=== PATIENT | male | born 1965 | race Caucasian/White ===

== ENCOUNTER → 2020-08-12 14:20 | Outpatient (BNVA) | payer OTHER, SELFPAY | PROVIDERS: PCP Internal Medicine; Visit Provider Surgery | DX: Z76.89 Persons encountering health services in other specified circumstances (principal) ==

== ENCOUNTER 2020-08-25 07:17 | Day surgery (SDC) | payer OTHER, SELFPAY ==
[2020-08-20 12:14] VITALS: BMI 29.5
--- NOTE | 2020-08-20 12:28 | P.CONAN_ITS ---
Documented by User: Yolie Lebron 08/20/20 12:29 HPI - Anesthesia Eval Consult details Narrative: 55yo M Hernia Repair Umbilical [facility] Past Medical History Medical History Hypercholesterolemia Hypertension Surgical History Surgical History History of appendectomy Social History Social History Alcohol intake: current Smoking Status: Never smoker Second Hand Smoke Exposure: No Use of substances other than those prescribed or required for medical reasons: No Advance Directives: No Advance Directives Information Provided: No Advance Directives on File: No Meds Allergies Allergy/AdvReac Type Severity Reaction Status Date / Time Penicillins [PENICILLINS] Allergy Unknown UNKNOWN Unverified 06/12/20 14:44 Home Medications Medication Instructions Recorded Confirmed Type lisinopril 10 mg tablet 10 mg PO DAILY 08/12/20 History simvastatin 10 mg tablet 10 mg PO DAILY 08/12/20 History Exam Exam Date and Time: August 20, 2020 1228 Height,Weight and Vital Signs: Height 5 ft 6 in Weight 83 kg Assessment and Plan Assessment Anesthesia Assessment: Chart Reviewed Documented by User: Michelle Luis 08/25/20 09:12 [facility] Past Medical History Medical History Hypercholesterolemia Hypertension Surgical History Surgical History History of appendectomy Social History Social History Alcohol intake: current Smoking Status: Never smoker Second Hand Smoke Exposure: No Use of substances other than those prescribed or required for medical reasons: No Advance Directives: No Advance Directives Information Provided: No Advance Directives on File: No Meds Allergies Allergy/AdvReac Type Severity Reaction Status Date / Time Penicillins [PENICILLINS] Allergy Unknown UNKNOWN Unverified 06/12/20 14:44 Home Medications Medication Instructions Recorded Confirmed Type lisinopril 10 mg tablet 10 mg PO DAILY 08/12/20 History simvastatin 10 mg tablet 10 mg PO DAILY 08/12/20 History
[2020-08-25] VITALS (7 sets, daily range): BP systolic 110–154; BP diastolic 61–79; PULSE 56–81; RESP 16–18; TEMP 36.4–36.6; O2SAT 94–99
[2020-08-25] MEDS: vancomycin HCL 1,000 MG in 0.9 % Sodium Chloride 250 ML 270 MG IV (09:39)
[2020-08-25] MEDS: Lactated Ringers 1,000 ML 100 ML IVCONT (09:39)
--- NOTE | 2020-08-25 09:44 | MHC.SHP ---
Pre-Procedural Eval Section A The patient is an INPATIENT: No Changes since office visit: Yes Patient answered all questions; No Cold of Flu in the past 2 weeks, No New Medical Problems and No Changes in Medication The History & Physical has been completed within 30 days and I have reviewed it.: Yes Section B Chief Complaint: Umbilical Hernia Allergies: Allergies Allergy/AdvReac Type Severity Reaction Status Date / Time Penicillins [PENICILLINS] Allergy Unknown UNKNOWN Unverified 06/12/20 14:44 Plan Diagnosis/Plan: Unchanged Patient has been examined and remains a candidate for the planned procedure
--- NOTE | 2020-08-25 10:43 | P.BOP_ITS ---
Brief Operative Note Date of Service: 08/25/20 Pre-op diagnosis: Umbilical hernia Post-op diagnosis: same Procedure: repair of umbilical hernia with mesh Implants: 4.[address] Surgeon: Stefano Arroyo MD Anesthesia: [facility] [employer] Professor: Loly Mckeon Estimated blood loss (mL): 5 Pathology: none sent Condition: stable Disposition: PACU
--- NOTE | 2020-08-25 10:44 | P.OP_ITS ---
Operative Note Operative Note Date of Service: 08/25/20 Narrative: preoperative diagnosis: Umbilical hernia Postoperative diagnosis: Same Procedure: Repair of umbilical hernia with mesh Surgeon: Stefano Arroyo MD Law Enforcement Officer: JUANITO Chaudhari Anesthesia: General [facility] Indications for procedure this is a 55-year-old male patient presenting with a lump in the umbilicus which is increasing in size and causing discomfort. On examination the patient has a reducible umbilical hernia with slight tenderness to palpation. Operative findings: Patient was found to have a 1 cm defect with incarcerated preperitoneal fat this was repaired using a 4.[address] mesh Specimen: None Estimated blood loss: 5 mL Complications: None Procedure details: Patient was brought to the OR placed in a supine position. After administering general anesthesia the patient's abdomen was prepped with ChloraPrep and draped in a sterile fashion. A surgical time-out was called the consent confirmed. Patient received preoperative antibiotics and Venodyne boots were in place. Local anesthesia consisting of 0.75% Sensorcaine was infiltrated around the umbilicus. A curvilinear incision was made above the umbilicus in a transverse fashion. This was carried out through subcutaneous tissue and up to the hernia sac. The hernia sac was then dissected down to the fascial edge. The hernia sac was then reduced into the abdominal cavity. A preperitoneal space was then created using a combination of blunt and sharp dissection. Hemostasis was assured using electrocautery. A 4.3 cm round Ventralex mesh was then obtained. This was placed in the preperitoneal space and secured to the fascia using interrupted of 1 Tycron sutures. Fascia was closed over the mesh. Wounds were then irrigated with saline solution. Additional local was infiltrated in subcutaneous tissue. Umbilical skin was then reattached to the fascia using interrupted 3-0 Polysorb sutures. dermis was reapproximated using interrupted 3-0 Polysorb sutures. Skin was then closed using a running subcuticular 4 0 Polysorb suture. Steri- Strips 2 x 2 gauze and Tegaderm were then applied. The patient tolerated the procedure well. Sponge, instrument, needle counts reported as correct. The patient was transferred to PACU in stable condition.
[2020-08-25] MEDS: Acetaminophen 325 MG TABLET 650 MG PO (11:11)
[2020-08-25] MEDS: oxyCODONE HCl Immed Release 5 MG TABLET 10 MG PO (11:12)
--- NOTE | 2020-08-25 11:47 | HO.POSTANES ---
Post Anesthesia Evaluation Post Anesthesia Evaluation Vital Signs: Vital Signs Temp Pulse Resp BP Pulse Ox 08/25/20 11:32 97.5 F 62 18 154/62 H 98 08/25/20 11:17 65 16 139/69 97 08/25/20 11:02 66 16 131/75 96 08/25/20 10:57 81 16 110/61 94 08/25/20 10:53 72 16 112/61 94 08/25/20 10:48 97.5 F 70 16 114/61 96 08/25/20 09:13 97.8 F 56 18 145/79 H 99 Anesthesia: General Mental Status: Awake Pain Control: Satisfactory Nausea/Vomiting: None Hydration: Adequate Anesthesia-Related Issues: No Anes. Related Issues
== END 2020-08-25 23:59 | disposition home or self-care (01) ==
PROVIDERS: PCP Internal Medicine; Visit Provider Surgery
PROC: (CPT 49585; principal; 2020-08-25 09:30)
DX: K42.9 Umbilical hernia without obstruction or gangrene (principal); I10 Essential (primary) hypertension; E78.00 Pure hypercholesterolemia, unspecified; Z79.899 Other long term (current) drug therapy
CPT/HCPCS: 49585; C1781; J1885; J2250; J2405; J3010; J3370

== ENCOUNTER → 2020-09-02 09:48 | Outpatient (BNVA) | payer OTHER, SELFPAY | PROVIDERS: PCP Internal Medicine; Visit Provider Surgery | DX: Z76.89 Persons encountering health services in other specified circumstances (principal) ==

== ENCOUNTER → 2020-09-24 09:29 | Outpatient (BNVA) | payer OTHER, SELFPAY | PROVIDERS: PCP Internal Medicine; Visit Provider Surgery | DX: Z76.89 Persons encountering health services in other specified circumstances (principal) ==

== ENCOUNTER 2023-04-10 13:34 | Emergency (ER) | payer OTHER, SELFPAY ==
--- NOTE | ~2023-04-10 | CT_ITS ---
EXAMINATION: CT CHEST WITHOUT CONTRAST CLINICAL INFORMATION: chest wall pain, ?rib fxs b/l concern for addtl'. COMPARISON: No pertinent prior studies are available for comparison. TECHNIQUE: Multidetector volumetric imaging was performed from the thoracic inlet through the lung bases without contrast. Sagittal and coronal reformatted images were obtained on the technologist workstation. Soft tissue and lung algorithms evaluated. Thick slab MIP images were performed to increase nodule conspicuity. This CT examination was performed using dose optimization techniques as appropriate, variously including the following: *Automated exposure control *Adjustment of mA and/or kV according to patient size (this includes techniques or standardized protocols for targeted exams where dose is matched to indication/reason for exam; i.e. extremities or head) *Use of iterative reconstruction technique DLP: 368 mGy-cm. FINDINGS: LUNG: The lungs are clear without focal opacity or nodule. MEDIASTINUM: The mediastinum is normal. The central vascular structures are unremarkable. No hilar or mediastinal lymphadenopathy. CORONARY ARTERY CALCIFICATION: Present PERICARDIUM/PLEURA: No significant effusion. No pleural mass or thickening. THYROID/VISUALIZED LOWER NECK: Unremarkable. CHEST WALL/AXILLA: No axillary adenopathy. VISUALIZED UPPER ABDOMEN: Gallstones within the dependent aspect of the contracted gallbladder BONES: Nondisplaced fracture of the anterior right fifth rib CT/CT chest wo IV con IMPRESSION: Nondisplaced fracture of the anterior right fifth rib. No pneumothorax or pleural effusion.
--- NOTE | ~2023-04-10 | XR_ITS ---
EXAMINATION: XR ribs BI min 4V w CXR1V CLINICAL INFORMATION: Reason for Exam s/p fall Tuesday with rib cage pain/bruising noted COMPARISON: Chest radiograph [id number] TECHNIQUE: 3 views of the Bilateral ribs. 1 view of the chest. FINDINGS: Mildly displaced right anterior fifth rib fracture. Possible subtle posterior left 11th rib fracture, recommend correlation with point tenderness. Clear lungs. No pneumothorax. No pleural effusion. Unchanged cardiomediastinal silhouette. XR/XR ribs BI min 4V w CXR1V IMPRESSION: 1. Mildly displaced right anterior fifth rib fracture. Possible subtle posterior left 11th rib fracture, recommend correlation with point tenderness. 2. Clear lungs. No pneumothorax.
[2023-04-10 13:49] VITALS: BP 173/102; PULSE 90; RESP 20; TEMP 35.8; O2SAT 97; BMI 27.8
--- NOTE | 2023-04-10 13:51 | ECG_ITS ---
Test Reason : FALL Blood Pressure : / mmHG Vent. Rate : 093 BPM Atrial Rate : 093 BPM P-R Int : 118 ms QRS Dur : 090 ms QT Int : 378 ms P-R-T Axes : 057 020 -25 degrees QTc Int : 469 ms Normal sinus rhythm with sinus arrhythmia Nonspecific T wave abnormality Abnormal ECG When compared with ECG of 18-JAN-2012 07:10, No significant change was found Referred By: Pat Norris Electronically Signed By:Lenny Marroquin
--- NOTE | 2023-04-10 13:51 | ED.FALL ---
HPI - Fall General Chief Complaint: Fall Stated Complaint: bruised ribs Time Seen by Provider: 04/10/23 16:06 Source: patient, RN notes reviewed and old records reviewed Mode of arrival: ambulatory Limitations: no limitations History of Present Illness HPI Narrative: 57-year-old male presents for evaluation chest wall pain Patient reports that he works at [employer]. He was carrying a tray when he tripped over ?a grease trap. Patient reports that he landed with his chest wall striking stainless steel grease trap Patient reports that it knocked the wind out of him This happened 2 days ago. He continues to have pain worse with taking a deep breath or coughing Denies any fevers, chills Denies any loss of conscious or head strike No other complaints or concerns Related Data Home Medications Medication Instructions Recorded Confirmed lisinopril 10 mg tablet 10 mg PO DAILY blood pressure 08/12/20 09/24/20 simvastatin 10 mg tablet 10 mg PO DAILY 08/12/20 09/24/20 Previous Rx's Medication Instructions Recorded benzonatate 200 mg capsule 200 mg PO TID PRN cough #20 caps 04/10/23 oxycodone 5 mg tablet 5 mg PO Q6H PRN severe pain (scale 04/10/23 score 7-10) #12 tabs Allergies Allergy/AdvReac Type Severity Reaction Status Date / Time Penicillins [PENICILLINS] Allergy Unknown UNKNOWN Verified 09/24/20 09:48 Review of Systems Constitutional: Constitutional: Reports as per HPI, Denies chills, Denies fatigue, Denies fever(s) and Denies headache(s) ENT: Denies headache(s) Cardiovascular: Cardiovascular: Reports chest pain and Denies dyspnea Respiratory: Respiratory: Reports cough and Denies dyspnea Gastrointestinal: Gastrointestinal: Denies abdominal pain, Denies constipation and Denies vomiting Genitourinary: Genitourinary: Denies difficulty urinating and Denies dysuria Neurologic: Denies headache(s) and Denies focal weakness Endocrine: Endocrine: Denies fatigue PMFSH Past Medical History Medical History Hypercholesterolemia Hypertension Surgical History H/O umbilical hernia repair History of appendectomy Social History Social History Alcohol intake: current Alcohol intake frequency: a few times a week Smoked in Last 30 Days: No Second Hand Smoke Exposure: No Use of substances other than those prescribed or required for medical reasons: No Advance Directives: No Advance Directives Information Provided: Yes Physical Exam Vital Signs: Vital Signs: Last Vital Signs Temp 96.4 F L 04/10/23 13:49 Pulse 89 04/10/23 15:27 Resp 18 04/10/23 15:27 BP 165/87 H 04/10/23 15:27 Pulse Ox 99 04/10/23 15:27 O2 Del Method Room Air 04/10/23 15:27 BMI result Body Mass Index 27.8 Const: General: healthy appearing, comfortable, no acute distress, alert and awake Nutritional Appearance: well nourished Orientation/consciousness: patient oriented x3 HEENT: Head: Yes normocephalic and Yes atraumatic Eyes: Eyelids: Yes eyelids normal Conjunctivae: conjunctivae normal Sclerae: sclerae normal Corneas: corneas normal Pupils: Equal, round and reactive pupils present EOM: EOMs intact bilaterally Neck: Neck: Yes full ROM Chest: Other: Contusion to the left anterior chest wall just below the nipple Chest palpation & inspection: abnormal inspection of the chest, no crepitus and tenderness (To the right anterior chest wall) Resp: Effort & Inspection: normal respiratory effort, able to speak in complete sentences, no audible wheezes and not labored Auscultation: clear to auscultation bilaterally GI: Inspection: No distended Palpation (GI): Soft to palpation, not firm, nontender, no guarding and not rigid Back/Spine/Pelvis: Other: Patient has minimal tenderness to the left posterior thoracic region overlying the lower ribs Skin: General skin exam: no rashes or lesions noted and elasticity normal Neuro: General: patient oriented x3 Cranial nerves: Yes Equal, round and reactive pupils present and Yes Bilaterally intact EOM present Cognition (Neuro): normal cognition Course Course Course Narrative: PEDRO- 13:55pm - 57yoM with a PMHx of HTN on Lisinopril presenting to the ER with complaints of anterior chest wall rib cage pain worse when he coughs or takes a deep breath after he had a mechanical fall at work on Tuesday. He reports that someone set a grease trapped in the middle of the floor and he did not see it and he unfortunately slipped and fell directly on the grease trap that is shaped like a square and has some mild pain. Although today woke up with worsening pain. He reports when he fell he did not have any symptoms prior to the fall. He did not hit his head or lose consciousness. He denies being on any blood thinners. He denies history of AK or CVA. He did not take his blood pressure medication today he decided to just come here to be evaluated reports this may be why his blood pressure is elevated. He did develop a dry cough that started today. The chest pain worsened today to his entire anterior chest wall. He denies any other symptoms related to this. On exam patient does have anterior chest wall rib cage tenderness. Some bruising noted to the left chest wall/near the nipple. Not consistent with flail chest. No crepitus is noted. No other signs of trauma. Lungs are clear to auscultation. CV RRR. Plan: Labs, EKG and rib/chest x-ray ordered at this time. Patient will be sent back to the waiting room to be evaluated in the ED patient is noted to be hypertensive although again he did not take his hypertensive medications. Medical Decision Making Medical Decision Making MDM Narrative: [age] old male presents for evaluation of chest wall pain after mechanical fall at work 2 days ago. His x-ray suggests a right 5th anterior mildly displaced rib fracture and a possible left posterior rib fracture of the 11th rib. He does have mild point tenderness over this region. A CT scan was ordered of the chest prior to my evaluation the patient, this result is pending. His labs are without any significant abnormalities Differential Diagnosis Differential Diagnoses: The differential diagnosis associated with the presentation includes Chest wall contusion Rib fracture Flail chest Pneumothorax Hemothorax Lab Data 04/10/23 14:20 04/10/23 14:20 Labs: Lab Results 04/10/23 04/10/23 04/10/23 Range/Units 14:20 14:20 14:20 WBC 3.7 L (4.8-10.8) X10*3/uL RBC 4.38 L (4.60-5.80) X10*6/uL Hgb 15.1 (14.0-18.0) g/dl Hct 42.2 (42.0-52.0) % MCV 96.3 (80.0-98.0) fL MCH 34.5 H (27.0-33.0) pg MCHC 35.8 (31.0-36.0) g/dl RDW 13.1 (11.0-16.0) % Plt Count 192 (160-400) X10*3/uL MPV 9.5 (9.4-12.4) fL Immature Gran % (Auto) 0.3 (0.0-0.4) % Neut % (Auto) 69.0 (45-73) % Lymph % (Auto) 21.3 (20-40) % [place] % (Auto) 7.8 (2-11) % Eos % (Auto) 1.1 (0-4) % Baso % (Auto) 0.5 (0-2) % Lymph # (Auto) 0.8 L (1.2-4.9) X10*3/uL [place] # (Auto) 0.3 (0.1-1.2) X10*3/uL Eos # (Auto) 0.0 (0.0-0.4) X10*3/uL Baso # (Auto) 0.0 (0.0-0.2) X10*3/uL Abs Immat Gran (auto) 0.01 (0.00-0.03) X10*3/uL Absolute Neuts (auto) 2.6 (2.0-8.3) x10*3/uL Absolute Nucleated RBC 0.000 (0.0-0.012) X10*3/uL Nucleated RBC % (auto) 0.0 (0.0-0.2) /100WBC PT 10.1 (10.0-13.1) SEC INR 0.9 (0.9-1.1) Sodium 144 (135-145) mmol/L Potassium 3.8 (3.3-5.1) mmol/L Chloride 106 (96-108) mmol/L Carbon Dioxide 26 (22-29) mmol/L Anion Gap 16 (12-20) BUN 9 (9-16) mg/dL Creatinine 1.30 (0.5-1.4) mg/dL Estim Creat Clear Calc 60.1 Estimated GFR 57 Random Glucose 98 (60-115) mg/dL Calcium 9.8 (8.4-10.2) mg/dL Magnesium 2.1 (1.6-2.6) mg/dL Total Bilirubin 0.7 (0.0-1.0) mg/dL AST 33 (5-37) U/L ALT 25 (0-40) U/L Alkaline Phosphatase 43 (39-117) U/L Total Creatine Kinase 189 H (38-174) U/L Troponin I High Sens (<3.5-35.0) ng/L Total Protein 7.4 (6.5-8.0) g/dL Albumin 4.4 (3.5-5.0) g/dL 04/10/23 Range/Units 14:20 WBC (4.8-10.8) X10*3/uL RBC (4.60-5.80) X10*6/uL Hgb (14.0-18.0) g/dl Hct (42.0-52.0) % MCV (80.0-98.0) fL MCH (27.0-33.0) pg MCHC (31.0-36.0) g/dl RDW (11.0-16.0) % Plt Count (160-400) X10*3/uL MPV (9.4-12.4) fL Immature Gran % (Auto) (0.0-0.4) % Neut % (Auto) (45-73) % Lymph % (Auto) (20-40) % [place] % (Auto) (2-11) % Eos % (Auto) (0-4) % Baso % (Auto) (0-2) % Lymph # (Auto) (1.2-4.9) X10*3/uL [place] # (Auto) (0.1-1.2) X10*3/uL Eos # (Auto) (0.0-0.4) X10*3/uL Baso # (Auto) (0.0-0.2) X10*3/uL Abs Immat Gran (auto) (0.00-0.03) X10*3/uL Absolute Neuts (auto) (2.0-8.3) x10*3/uL Absolute Nucleated RBC (0.0-0.012) X10*3/uL Nucleated RBC % (auto) (0.0-0.2) /100WBC PT (10.0-13.1) SEC INR (0.9-1.1) Sodium (135-145) mmol/L Potassium (3.3-5.1) mmol/L Chloride (96-108) mmol/L Carbon Dioxide (22-29) mmol/L Anion Gap (12-20) BUN (9-16) mg/dL Creatinine (0.5-1.4) mg/dL Estim Creat Clear Calc Estimated GFR Random Glucose (60-115) mg/dL Calcium (8.4-10.2) mg/dL Magnesium (1.6-2.6) mg/dL Total Bilirubin (0.0-1.0) mg/dL AST (5-37) U/L ALT (0-40) U/L Alkaline Phosphatase (39-117) U/L Total Creatine Kinase (38-174) U/L Troponin I High Sens < 2.7 (<3.5-35.0) ng/L Total Protein (6.5-8.0) g/dL Albumin (3.5-5.0) g/dL Independent Interpretation I performed an independent interpretation of an: Plain X-Ray (Right 5th anterior rib fracture no pneumothorax) Radiology Impression Discussion of test interpretation with radiology: I have reviewed the radiologist's reading. (Right 5th rib fracture, questionable 11th left posterior rib fracture) Radiologist Impression: CT scan confirms right 5th rib fracture but no other acute findings Discharge Plan Discharge Clinical Impression: Fracture of rib Patient Disposition: Home, Self-Care Instructions: Rib Fracture (ED) Additional Instructions: Your CT scan only showed the 1 rib fracture on the right 5th rib. Use ibuprofen and or Tylenol for your pain You may use oxycodone for more severe, breakthrough pain This may make you sleepy, did not drink alcohol or drive after taking it You may also use Tessalon Perles as needed for coughing Using incentive spirometry once every hour to prevent pneumonia Follow-up with your primary doctor Prescriptions: New oxycodone 5 mg tablet 5 mg PO Q6H PRN (Reason: severe pain (scale score 7-10)) Qty: 12 0RF Rx Instructions: Partial Fill upon patient request. benzonatate 200 mg capsule 200 mg PO TID PRN (Reason: cough) Qty: 20 0RF No Action lisinopril 10 mg tablet 10 mg PO DAILY simvastatin 10 mg tablet 10 mg PO DAILY
[2023-04-10 14:26] LABS: MANUAL DIFF FLAG NO
[2023-04-10 14:28] LABS: Basophils Percent Auto 0.5 % (0-2); Eosinophils Percent Auto 1.1 % (0-4); Hematocrit 42.2 % (42.0-52.0); Hemoglobin 15.1 g/dl (14.0-18.0); Imm Gran Abs Auto 0.01 X10*3/uL (0.00-0.03); Imm Gran Pct Auto 0.3 % (0.0-0.4); Lymphocytes Absolute Auto 0.8 X10*3/uL (1.2-4.9); Lymphocytes Percent Auto 21.3 % (20-40); Mean Corpuscular HGB Conc 35.8 g/dl (31.0-36.0); Mean Corpuscular Hemoglobin 34.5 pg (27.0-33.0); Mean Corpuscular Volume 96.3 fL (80.0-98.0); Mean Platelet Volume 9.5 fL (9.4-12.4); Monocytes Absolute Auto 0.3 X10*3/uL (0.1-1.2); Monocytes Percent Auto 7.8 % (2-11); Neutrophils Absolute Auto 2.6 x10*3/uL (2.0-8.3); Platelet Count 192 X10*3/uL (160-400); Red Blood Count 4.38 X10*6/uL (4.60-5.80); Red Cell Distribution Width 13.1 % (11.0-16.0); White Blood Count 3.7 X10*3/uL (4.8-10.8)
[2023-04-10 14:44] LABS: Alanine Aminotransferase 25 U/L (0-40); Albumin Level 4.4 g/dL (3.5-5.0); Alkaline Phosphatase 43 U/L (39-117); Anion Gap 16 (12-20); Aspartate Amino Transferase 33 U/L (5-37); Bilirubin Total 0.7 mg/dL (0.0-1.0); Blood Urea Nitrogen 9 mg/dL (9-16); Calcium 9.8 mg/dL (8.4-10.2); Carbon Dioxide 26 mmol/L (22-29); Chloride 106 mmol/L (96-108); Creatinine Clr Calc Pharmacy 60.1; Estimated Glomerular Filt Rate 57; Glucose Random 98 mg/dL (60-115); Magnesium 2.1 mg/dL (1.6-2.6); Potassium 3.8 mmol/L (3.3-5.1); Sodium 144 mmol/L (135-145); Total Protein 7.4 g/dL (6.5-8.0)
[2023-04-10 14:45] LABS: INTERNATIONAL NORM RATIO 0.9 (0.9-1.1); Prothrombin Time 10.1 SEC (10.0-13.1)
[2023-04-10 14:51] LABS: Troponin-I High Sensitivity < 2.7 ng/L (<3.5-35.0)
[2023-04-10 15:27] VITALS: BP 165/87; PULSE 89; RESP 18; O2SAT 99
--- NOTE | 2023-04-10 15:42 | PC.NURSE ---
pt a&ox3. skin warm pink and dry. respirations even and unlabored, lung sounds clear bilaterally. pt reports tripping over a grease trap at work and hitting his chest. pt has bruising under his left breast and tenderness under both breasts. pt has small bruise above the left knee. pt reports 8/10 pain with a 10/10 when coughing. pt shown how to splint cough with a blanket.
--- NOTE | 2023-04-10 16:30 | PC.NURSE ---
pt instructed on use of incentive spirometry, this RN watched the pt demonstrate 3x.
== END 2023-04-10 18:00 | disposition home or self-care (01) ==
PROVIDERS: Physician Assistant Medical; Emergency Provider Emergency Medicine; PCP Internal Medicine
DX: S22.31XA Fracture of one rib, right side, initial encounter for closed fracture (principal); S27.9XXA Injury of unspecified intrathoracic organ, initial encounter; R07.89 Other chest pain; E78.00 Pure hypercholesterolemia, unspecified; I10 Essential (primary) hypertension; R07.1 Chest pain on breathing; W18.09XA Striking against other object with subsequent fall, initial encounter; Y93.89 Activity, other specified; Y92.89 Other specified places as the place of occurrence of the external cause; Y99.8 Other external cause status; Z79.899 Other long term (current) drug therapy
CPT/HCPCS: 36415; 71111; 71250; 80053; 82550; 83735; 84484; 85025; 85610; 93005; 94010; 99284

== ENCOUNTER → 2023-04-10 13:51 | Outpatient (BNV) | payer OTHER, SELFPAY | PROVIDERS: Emergency Provider Emergency Medicine; PCP Internal Medicine; Visit Provider Internal Medicine Cardiovascular Disease | DX: I49.9 Cardiac arrhythmia, unspecified (principal) | CPT/HCPCS: 93010 ==

== ENCOUNTER 2024-06-29 11:24 | Emergency (ER) | payer OTHER, SELFPAY ==
--- NOTE | ~2024-06-29 | XR_ITS ---
EXAMINATION: XR FOOT, LEFT CLINICAL INFORMATION: Pain along plantar foot. No injury. COMPARISON: None available. TECHNIQUE: AP, lateral, and oblique views of the left foot. FINDINGS: The bones and soft tissues appear unremarkable. No fracture identified. Alignment is anatomic. Joint spaces appear maintained. XR/XR foot LT min 3V IMPRESSION: Normal plain film examination of the left foot. Electronically signed by: Ankush Nagy MD 06/29/2024 01:54 PM EDT
[2024-06-29 11:57] VITALS: BP 127/92; PULSE 80; RESP 18; TEMP 36.4; O2SAT 98; BMI 25.5
--- NOTE | 2024-06-29 11:59 | ED.LOWEXIN ---
HPI - Extremity Injury (Lower) General Chief Complaint: Extremity Problem Stated Complaint: left foot pain-heard a pop in foot t-1 Time Seen by Provider: 06/29/24 13:51 Source: patient Mode of arrival: ambulatory Limitations: physical limitation History of Present Illness HPI Narrative: 59-year-old male presents to the emergency department with complaints of a 2 day history of left posterior foot pain. He reports he has been having pain starting at the arch of the foot radiating into the heel in the ankle starting on Tuesday. He reports he went to work yesterday, worked until 230 and went home to rest. He reports that he felt a ?pop? in the foot while he was sleeping. He states when he stepped out of the bed that he had immediate pain has been having pain with ambulation as well as swelling to the foot. He states he has a history of gout and reports that he drinks beer nightly but has not had any increase of alcohol or other gout triggers. He denies any erythema, ecchymosis, fever, chills. Pertinent positives and negatives discussed HPI Related Data Home Medications ?Medication ?Instructions ?Recorded ?Confirmed lisinopril 10 mg tablet 10 mg PO DAILY blood pressure 08/12/20 09/24/20 simvastatin 10 mg tablet 10 mg PO DAILY 08/12/20 09/24/20 Previous Rx's ?Medication ?Instructions ?Recorded benzonatate 200 mg capsule 200 mg PO TID PRN cough #20 caps 04/10/23 oxycodone 5 mg tablet 5 mg PO Q6H PRN severe pain (scale 04/10/23 score 7-10) #12 tabs indomethacin 25 mg capsule 25 mg PO TID #20 caps 06/29/24 Allergies Allergy/AdvReac Type Severity Reaction Status Date / Time Penicillins [PENICILLINS] Allergy Unknown UNKNOWN Verified 06/29/24 11:58 Review of Systems Review of Systems: Yes all other systems are reviewed and are negative PMFSH Past Medical History Medical History Hypercholesterolemia Hypertension Surgical History H/O umbilical hernia repair History of appendectomy Social History Social History Alcohol intake: current Alcohol intake frequency: a few times a week Second Hand Smoke Exposure: No Advance Directives: No Advance Directives Information Provided: No Physical Exam Vital Signs: Vital Signs: Last Vital Signs Temp 97.6 F 06/29/24 11:57 Pulse 80 06/29/24 11:57 Resp 18 06/29/24 11:57 BP 127/92 H 06/29/24 11:57 Pulse Ox 98 06/29/24 11:57 O2 Del Method Room Air 06/29/24 11:57 BMI result Body Mass Index 25.5 Nursing notes and vital signs reviewed. GENERAL APPEARANCE: A&0 x 4, generally well appearing, no acute distress HENMT: Normal to inspection, atraumatic, face symmetrical. Normal external ears, nose, and oropharynx clear. EYE: PERRLA, EOM intact, structures appear normal NECK: Supple without stiffness or restricted ROM. HEART: Normal rate and regular rhythm, normal S1/S2, no M/R/G LUNGS: LS CTA, moving air well. Able to speak in complete sentences. No crackles, wheezes, or rhonchi auscultated BACK: No CVAT, no obvious deformity EXTREMITIES: Normal capillary refill. NEUROLOGICAL: Alert and oriented, moving all 4 extremities with equal strength. CN not formally tested but appearing grossly intact. Observed to ambulate with normal gait. Cognition normal SKIN: Warm and dry without any lesions, rash, or visible sores Extrem: Left lower extremity: foot Details: edema Ankle/foot/toe images: 1. Tenderness Course Course Course Narrative: This is a Rapid Medical Examination (RME) performed by Wilbert Marshall PA-C in triage. Full HPI, ROS, assessment and treatment plan per primary provider in the Main ED. 59 yo male here for eval of left foot pain after stretching and feeling a pop while sleeping. report pain on taking first steps this morning. painful to ambulate, had to call off work today. + ttp along plantar fascia of left food. FROM intact to ankle/ toes. 2+ PT/DP pulses. Plan: xrs Medical Decision Making Medical Decision Making MDM Narrative: Old records reviewed for previous imaging, lab studies, ECGs, and notes. Patient was assessed the emergency department with no acute distress or toxicity noted. X-ray completed. I have independently interpreted this x-ray was negative for acute findings. Patient's symptoms appear consistent with a strain of sprain of the foot vs plantar fasciitis. Low suspicion for gout, however; and message sent to patient pharmacy for further management of pain. Patient requested crutches as he feels as if he can not comfortably ambulate. Patient was trialed using crutches and there was concern for stability. A walker was used and patient was noted to ambulate with greater safety using a walker Patient is safe for discharge at this time with plan for [id number] Tylenol and/or NSAID such as ibuprofen or naproxen for fever/discomfort with dosing as per packaging. HPI, PE, diagnostics, and plan discussed with patient and family with no unanswered questions at this time. Strict return precautions given to return to the emergency department with new, worsening, or concerning emergent symptoms. Recommended to follow-up with there primary care provider in 24-48 hours for further treatment and management. Differential Diagnosis Differential Diagnoses: The differential diagnosis associated with the presentation includes But not limited to Fracture, dislocation, strain, sprain, contusion, dependent edema, gout, plantar fasciitis, tendon or ligament injury, sepsis, malignancy Independent Interpretation I performed an independent interpretation of an: Plain X-Ray Interpretation: negative for acute fractures Radiology Impression Discussion of test interpretation with radiology: I have reviewed the radiologist's reading. External Record Review External record reviewed: Other previous records Prescription Management I considered prescription management with: Pain Medication Narcotic pain medication was considered, however; based on exam, side effects, and high-risk of addiction was deemed necessary at this time. Discharge Plan Discharge Clinical Impression: Foot arch pain Patient Disposition: Home, Self-Care Instructions: Plantar Fasciitis (ED), Arthralgia (ED), Plantar Fasciitis Exercises (ED) Additional Instructions: EXAMINATION: XR FOOT, LEFT CLINICAL INFORMATION: Pain along plantar foot. No injury. COMPARISON: None available. TECHNIQUE: AP, lateral, and oblique views of the left foot. FINDINGS: The bones and soft tissues appear unremarkable. No fracture identified. Alignment is anatomic. Joint spaces appear maintained. XR/XR foot LT min 3V IMPRESSION: Normal plain film examination of the left foot. Prescriptions: New indomethacin 25 mg capsule 25 mg PO TID Qty: 20 0RF Rx Instructions: administer with food or milk No Action oxycodone 5 mg tablet 5 mg PO Q6H PRN (Reason: severe pain (scale score 7-10)) Qty: 12 0RF Rx Instructions: Partial Fill upon patient request. benzonatate 200 mg capsule 200 mg PO TID PRN (Reason: cough) Qty: 20 0RF lisinopril 10 mg tablet 10 mg PO DAILY simvastatin 10 mg tablet 10 mg PO DAILY Referrals: [facility] – [place] Family Medicine [Provider Group] [facility] [place], [place] [Provider Group] [facility] – [place] [Provider Group] Amado Cisse MD [Physician] - Stand Alone Forms: Work/School Release Print Language: Turkish
--- OUTSIDE RECORDS SUMMARY | 2024-06-29 14:19 | XMS_ITS | Continuity of Care Document ---
Author Organization [facility] ter Address [address] [place] [id number]- Care Team Providers Care House Visitor Name Role Phone Henrry Swift MD Primary Care Physician Encounter [facility] – [place] Date(s): 05/28/22 - 05/29/[address] [address]- Discharge Disposition: A-D/C Home Attending Physician: Otto Alvarenga MD Admitting Physician: Otto Alvarenga MD Referring Physician: Not on Staff, Referring MD Results Radiology Reports * Exam Date Time Procedure Performing Provider Status 05/28/22 9:42 PM Elbow Min 3 Views Right Reno Patel; Auth (Verified) Notes: (Elbow Min 3 Views Right) Reason For Exam: with Pain;Trauma RESULT: Elbow Min 3 Views Right Elbow Min 3 Views Right, 3 views REASON: Trauma; with Pain; Clinical Question(s): Fracture COMPARISON: None. FINDINGS: No fracture or dislocation. Mild degenerative changes of the elbow with joint space narrowing and small spurs along the distal humerus and olecranon. Mild soft tissue edema of the medial elbow. IMPRESSION: No acute fracture or dislocation. I have personally reviewed the images and I agree with this report. WSN: [id number] Ordering Physician: Ashley Silva Dictated By: Tuyet Brown DO Dictated Date/Time: 05/28/22 9:52 pm Reviewed By: Elias Chadwick MD Signed By: Elias Chadwick MD Signed Date/Time: 05/28/22 9:57 pm Transcribed By: SYLVIA Transcribed Date/Time: 05/28/22 9:51 pm * Exam Date Time Procedure Performing Provider Status 05/28/22 9:42 PM Shoulder Min 2 Views Left Harsh Patel; Auth (Verified) Notes: (Shoulder Min 2 Views Left) Reason For Exam: with Pain;Trauma RESULT: Shoulder Min 2 Views Left Shoulder Min 2 Views Left, 3 views REASON: Trauma; with Pain; Clinical Question(s): Fracture COMPARISON: CT chest January 25, 2022. FINDINGS: No fracture or dislocation. Mild glenohumeral joint space narrowing and marginal spurring. Mild degenerative changes of the AC joint. The portion of the clavicle included on the exam is normal. Mild enthesopathy versus calcific tendinopathy of the rotator cuff. IMPRESSION: No acute fracture or dislocation. I have personally reviewed the images and I agree with this report. WSN: [id number] Ordering Physician: Ashley Silva Dictated By: Tuyet Brown DO Dictated Date/Time: 05/28/22 9:51 pm Reviewed By: Elias Chadwick MD Signed By: Elias Chadwick MD Signed Date/Time: 05/28/22 9:56 pm Transcribed By: SYLVIA Transcribed Date/Time: 05/28/22 9:48 pm * Exam Date Time Procedure Performing Provider Status 05/28/22 9:00 PM Chest Portable Gay Bradshaw; Auth (Verified) Notes: (Chest Portable) Reason For Exam: Pain;Other: RESULT: Chest Portable Chest Portable REASON: Pain; Clinical Question(s): Fracture, pneumothorax, pulmonary contusion COMPARISON: None. FINDINGS: LINES AND TUBES: None. LUNGS AND PLEURA: Clear lungs. Normal pulmonary vascularity. No pleural effusion. No pneumothorax. HEART, MEDIASTINUM AND AYSHA: Heart is at the upper limits of normal for size. Normal upper mediastinal and hilar contour. BONES AND SOFT TISSUES: No acute abnormality. IMPRESSION: No acute abnormality. No displaced rib fracture or pneumothorax. I have personally reviewed the images and I agree with this report. WSN: [id number] Ordering Physician: Ashley Silva Dictated By: Tuyet Brown DO Dictated Date/Time: 05/28/22 9:13 pm Reviewed By: Elias Chadwick MD Signed By: Elias Chadwick MD Signed Date/Time: 05/28/22 9:18 pm Transcribed By: SYLVIA Transcribed Date/Time: 05/28/22 9:09 pm Vital Signs Most recent to oldest [Reference Range]: 1 2 Oxygen Saturation [94-100 %] 99 % (05/29/22 12:55 AM) 97 % (05/28/22 10:44 PM) Pulse Rate [55-90 bpm] 72 bpm (05/29/22 12:55 AM) 75 bpm (05/28/22 10:44 PM) Blood Pressure [90-138/55-84 mm Hg] 161/ 80mm Hg *H* (05/29/22 12:55 AM) 167/92mm Hg *H* (05/28/22 10:44 PM) Respiratory Rate [16-30 br/min] 16 br/mi n (05/29/22 12:55 AM) 16 br/min (05/28/22 10:44 PM) Mode of Delivery (Oxygen) Room air (05/29/22 12:55 AM) Room air (05/28/22 10:44 PM) Note * BHSPowerscribe , CIS S: TRANSCRIBE Elias Chadwick MD: VERIFY Tuyet Brown DO P: SIGN Event Display: Result: Authored Date: Chest Portable REASON: Pain; Clinical Question(s): Fracture, pneumothorax, pulmonary contusion COMPARISON: None. FINDINGS: LINES AND TUBES: None. LUNGS AND PLEURA: Clear lungs. Normal pulmonary vascularity. No pleural effusion. No pneumothorax. HEART, MEDIASTINUM AND AYSHA: Heart is at the upper limits of normal for size. Normal upper mediastinal and hilar contour. BONES AND SOFT TISSUES: No acute abnormality. IMPRESSION: No acute abnormality. No displaced rib fracture or pneumothorax. I have personally reviewed the images and I agree with this report. WSN: [id number] Ordering Physician: Ashley Silva Dictated By: Tuyet Brown DO Dictated Date/Time: 05/28/22 9:13 pm Reviewed By: Elias Chadwick MD Signed By: Elias Chadwick MD Signed Date/Time: 05/28/22 9:18 pm Transcribed By: SYLVIA Transcribed Date/Time: 05/28/22 9:09 pm * LESLYESPowerscLIZZETTE barba S: TRANSCRIBE Elias Chadwick MD: VERIFY Tuyet Brown DO: SIGN Event Display: Result: Authored Date: [id number] Shoulder Min 2 Views Left, 3 views REASON: Trauma; with Pain; Clinical Question(s): Fracture COMPARISON: CT chest January 25, 2022. FINDINGS: No fracture or dislocation. Mild glenohumeral joint space narrowing and marginal spurring. Mild degenerative changes of the AC joint. The portion of the clavicle included on the exam is normal. Mild enthesopathy versus calcific tendinopathy of the rotator cuff. IMPRESSION: No acute fracture or dislocation. I have personally reviewed the images and I agree with this report. WSN: [id number] Ordering Physician: Ashley Silva Dictated By: Tuyet Brown DO Dictated Date/Time: 05/28/22 9:51 pm Reviewed By: Elias Chadwick MD Signed By: Elias Chadwick MD Signed Date/Time: 05/28/22 9:56 pm Transcribed By: SYLVIA Transcribed Date/Time: 05/28/22 9:48 pm * [facility] , CIS S: TRANSCRIBE Elias Chadwick MD: VERIFY Tuyet Brown DO: SIGN Event Display: Result: Authored Date: [id number] Elbow Min 3 Views Right, 3 views REASON: Trauma; with Pain; Clinical Question(s): Fracture COMPARISON: None. FINDINGS: No fracture or dislocation. Mild degenerative changes of the elbow with joint space narrowing and small spurs along the distal humerus and olecranon. Mild soft tissue edema of the medial elbow. IMPRESSION: No acute fracture or dislocation. I have personally reviewed the images and I agree with this report. WSN: [id number] Ordering Physician: Ashley Silva Dictated By: Tuyet Brown DO Dictated Date/Time: 05/28/22 9:52 pm Reviewed By: Elias Chadwick MD Signed By: Elias Chadwick MD Signed Date/Time: 05/28/22 9:57 pm Transcribed By: SYLVIA Transcribed Date/Time: 05/28/22 9:51 pm Care Team Personnel Name: Henrry Swift MD Address: [address] [place] [address] Henrry Swift MD [place], [address]
--- OUTSIDE RECORDS SUMMARY | 2024-06-29 14:19 | XMS_ITS | Continuity of Care Document ---
Author Organization [facility] ter Address [address] [place] [address]- Care Team Providers Care Grid Casting Machine Operator Helper Name Role Phone Henrry Swift MD Primary Care Physician [phone] [place]counter [facility] [place](s[place] 06/11/22 - 06/11/[address] [address]- Discharge Disposition: A-D/C Home Attending Physician: Dirk Parker MD Admitting Physician: Dirk Parker MD Referring Physician: Not on Staff, Referring MD Allergies, Adverse Reactions, Alerts Substance Reaction Severity Status penicillins Active Medications lisinopril 10 mg oral tablet 10 mg, 1, tablet, By Mouth, Daily, # 30 tablet, Refills 0, Maintenance, 09/04/21 12:46:00 EST, Partial fill upon patient request if the prescription is for a schedule II opioid drug. Start Date: 09/04/21 Status: Ordered simvastatin 10 mg oral tablet 10 mg, 1, tablet, By Mouth, Daily at bedtime, # 30 tablet, Refills 0, Maintenance, 09/04/21 12:46:00 EST, Partial fill upon patient request if the prescription is for a schedule II opioid drug. Start Date: 09/04/21 Status: Ordered Vital Signs Most recent to oldest [Reference Range]: 1 Oxygen Saturation [94-100 %] 100 % (06/11/22 11:38 AM) Pulse Rate [55-90 bpm] 81 bpm (06/11/22 11:38 AM) Blood Pressure [90-138/55-84 mm Hg] 200/ 96mm Hg *H* (06/11/22 11:38 AM) Respiratory Rate [16-30 br/min] 16 br/mi n (06/11/22 11:38 AM) Temperature [96.8-100.4 DegF] 98.1 DegF (06/11/22 11:38 AM) Mode of Delivery (Oxygen) Room air (06/11/22 11:38 AM) Blood pressure sites Arm, right (06/11/22 11:38 AM) Temperature Route Oral (06/11/22 11:38 AM) Care Team Personnel Name: Henrry Swift MD Address: [address] [facility] [place] [address]-
[2024-06-29 14:58] VITALS: BP 128/88; PULSE 83; RESP 18; TEMP 36.6; O2SAT 98
[2024-06-29 15:05] VITALS: BP 128/88; PULSE 83; RESP 18; TEMP 36.6; O2SAT 98
== END 2024-06-29 15:06 | disposition home or self-care (01) ==
PROVIDERS: Emergency Provider Student in an Organized Health Care Education/Training Program
DX: M79.672 Pain in left foot (principal)
CPT/HCPCS: 73630; 99282; 99283

== ENCOUNTER 2025-07-08 17:06 | Emergency (ER) | payer OTHER, SELFPAY ==
--- OUTSIDE RECORDS SUMMARY | 2025-07-08 14:00 | XMS_ITS | Encounter Summary ---
Author Organization [facility] Address [address] [facility] [address] [place] [address] Care Team Providers Care Pattern Stamper Name Role Phone Konstantin Tolbert MD Primary Care Provider [phone] Reason for Referral * Consultation (Urgent) - Pending Review Specialty Diagnoses / Procedures Referred By Brianna fajardo Referred To Contact Behavioral Health Diagnoses Primary hypertension Hypertensive emergency Konstantin Tolbert MD [address] [place] [address] Phone: tel: fax: Referral ID Status Reason Start Date Expiration Date Visits Requested Visits Authorized [id number] Pending Review Specialty Services Required 07/08/2026 1 1 * Endoscopy (Routine) - Pending Review Specialty Diagnoses / Procedures Referred By Brianna fajardo Referred To Contact Diagnoses Health care maintenance Procedures Colonoscopy Screening Konstantin Tolbert MD [address] [place] [address] Phone: tel: fax: Referral ID Status Reason Start Date Expiration Date V isits Requested Visits Authorized [id number] Pending Review 07/08/2025 07/08/2026 1 1 Encounter Details Date Type Department Care Team (Late st Contact Info) Description 07/08/2025 2:00 PM EDT Office Visit [facility] [address] [place], [place] [phone] Konstantin Tolbert MD [address], [place] [phone] Primary hypertension (Primary Dx); Health care maintenance; Dietary counseling; Exercise counseling; Excessive cerumen in left ear canal; Hypertensive emergency Social History Tobacco Use Types Packs/Day Years Used Date Smoking Tobacco: Never Smokeless Tobacco: Never Tobacco Cessation:Counseling Given: Not Answered Alcohol Use Standard Drinks/Week Comments Yes 49 (1 standard drink = 0.6 oz pu re alcohol) 4 beers, 3 shots / day Alcohol Answer Date Recorded How often do you have a drink containing alcohol ? 1 07/08/2025 How many drinks containing a lcohol do you have on a typical day when you are drinking? 0 07/08/2025 How often do you have six or more drinks on one occasion? 0 07/08/2025 Housing Stability Answer Date Recorded What is your housing situation today? I have peter ximena 07/08/[address] you li ve. Do you have problems with any of the following? None of the above 07/08/2025 Food Insecurity Answer Date Recorded Within the past 12 months, y ou worried that your food would run out before you got money to buy more: Never True 07/08/2025 Within the past 12 months,th e food you bought just didn't last and you didn't have enough money to get more: Never True Transportation Answer Date Recorded In the past 12 months, has l ack of transportation kept you from medical appts, meetings, work or from getting things needed for daily living? No 07/08/2025 Utilities Answer Date Recorded In the past 12 months, has t he electric, gas, oil or water company threatened to shut off services in your home? No 07/08/2025 Internet Access Answer Date Recorded Internet Access Q1 Yes 07/08/2025 Internet Access Q2 Not on file 07/08/2025 Education Answer Date Recorded What is the highest level of school you have completed or the highest degree you have received? High school graduate 07/08/2025 Sex and Gender Information Value Date Recorded Sex Assigned at Male 07/26/2022 10:16 AM EDT Legal Sex Male 10:16 AM EDT Gender Identity Male 07/26/2022 10:16 AM EDT Sexual Orientation Straight 07/26/2022 10 :16 AM EDT documented as of this encounter Last Filed Vital Signs Vital Sign Reading Time Taken Comments Blood Pressure 210/119 07/08/2025 2:07 PM EDT Pulse 102 07/08/2025 2:07 PM EDT Temperature - - Respiratory Rate 20 07/08/2025 2:07 PM EDT Oxygen Saturation 98% 07/08/2025 2:07 PM EDT Inhaled Oxygen Concentration - - Weight 71.2 kg (157 lb) 07/08/2025 2:07 PM EDT Height 161 cm (5' 3.39 ) 07/08/2025 2:07 PM EDT Body Mass Index 27.47 07/08/2025 2:07 PM EDT documented in this encounter Functional Status * Trouble falling or staying asleep, or sleeping too much Answer Date of Assessment Author Not at all 07/08/2025 4:38 PM EDT Chu Hernandes MA * Feeling tired or having little energy Answer Date of Assessment Author Not at all 07/08/2025 4:38 PM EDT Chu Hernandes MA * Poor appetite or overeating Answer Date of Assessment Author Not at all 07/08/2025 4:38 PM EDT Chu Hernandes MA * Feeling bad about yourself - or that you are a failure or have let yourself or your family down Answer Date of Assessment Author Not at all 07/08/2025 4:38 PM EDT Chu Hernandes MA * Trouble concentrating on things, such as reading the newspaper or watching television Answer Date of Assessment Author Not at all 07/08/2025 4:38 PM EDT hCu Hernandes MA * Moving or speaking so slowly that other people could have noticed? Or the opposite - being so fidgety or restless that you have been moving around a lot more than usual. Answer Date of Assessment Author Not at all 07/08/2025 4:38 PM EDT Chu Hernandes MA * Thoughts that you would be better off or hurting yourself in some way Answer Date of Assessment Author Not at all 07/08/2025 4:38 PM EDT Chu Hernandes MA documented as of this encounter Miscellaneous Notes * Assessment & Plan Note - CHANG Lr - 07/08/2025 2:00 PM EDT Associated Problem(s): Primary hypertension Orders: lisinopril-hydroCHLOROthiazide 10-12.5 MG tablet; Take 1 tablet by mouth Once per day. cloNIDine (Catapres) tablet 0.2 mg documented in this encounter Plan of Treatment Scheduled Orders Name Type Priority Associated Diagnoses Orde r Schedule Lipid Panel, Standard Lab Routine Health care maintenance Expected: 07/08/2025 (Approximate), Expires: 07/08/2026 CBC auto differential Lab Routine Health care maintenance Expected: 07/08/2025 (Approximate), Expires: 07/08/2026 Comprehensive Metabolic Panel Lab Routine Health care maintenance Expected: 07/08/2025 (Approximate), Expires: 07/08/2026 Colonoscopy Screening Endoscopy Routine Health care maintenance Expected: 07/08/2025, Expires: 01/06/2026 PSA, Total With Reflex to PSA, Free Lab Routine Health care maintenance Expected: 07/08/2025 (Approximate), Expires: 07/08/2026 Scheduled Referrals Name Type Priority Associated Diagnoses Order Schedule Referral to Hospitalization Screening Outpatient Referral Urgent Primary hypertension Hypertensive emergency Expected: 07/08/2025 (Approximate), Expires: 07/08/2026 documented as of this encounter Visit Diagnoses Diagnosis Primary hypertension- Primary Unspecified essential hypertension Health care maintenance Dietary counseling Dietary surveillance and counseling Exercise counseling Excessive cerumen in left ear canal Hypertensive emergency documented in this encounter Administered Medications Inactive Administered Medications - up to 3 most recent administrations Medication Order MAR Action Action Date Dose Rate Site cloNIDine (Catapres) tablet 0.2 mg 0.2 mg, Oral, Once, On 07/08/25 at 1600, For 1 doseIndications:Primary hypertension Given 07/08/2025 4:00 PM EDT 0.2 mg documented in this encounter Care Teams Pattern Stamper Relationship Specialty Start Date End Date Konstantin Tolbert MD [address] [place] [phone] PCP - General Internal Medicine 07/08/25 documented as of this encounter
[2025-07-08 17:23] VITALS: BP 196/100; BP 212/110; PULSE 83; PULSE 85; PULSE 87; RESP 16; TEMP 36.8; O2SAT 96; O2SAT 98; BMI 29.0
--- OUTSIDE RECORDS SUMMARY | 2025-07-08 17:47 | XMS_ITS | Encounter Summary ---
Author Organization [employer] Address [address] [facility] [address] [place] [address] Care Team Providers Care Disc Recordist Name Role Phone Unavailable Primary Care Provider Unavailabl e Reason for Visit * Reason Onset Date Comments chart prep 07/05/2025 Encounter Details Date Type Department Care Team (Late st Contact Info) Description 07/05/2025 Telephone [facility] [address] [place] [address] Alma Hernandes MA chart prep Social History Tobacco Use Types Packs/Day Years Used Date Smoking Tobacco: Never Assessed Sex and Gender Information Value Date Recorded Sex Assigned at Male 07/26/2022 10:16 AM EDT Legal Sex Male 10:16 AM EDT Gender Identity Male 07/26/2022 10:16 AM EDT Sexual Orientation Straight 07/26/2022 10 :16 AM EDT documented as of this encounter Plan of Treatment Not on file documented as of this encounter Visit Diagnoses Not on filedocumented in this encounter
--- OUTSIDE RECORDS SUMMARY | 2025-07-08 17:47 | XMS_ITS | Encounter Summary ---
Author Organization [employer] Address [address] [facility] [address] [place] [address] Care Team Providers Care Technical Sales Advisor Name Role Phone Unavailable Primary Care Provider Unavailabl e Encounter Details Date Type Department Care Team (Latest Contact Info) Description 07/07/2025 Travel Social History Tobacco Use Types Packs/Day Years Used Date Smoking Tobacco: Never Assessed Alcohol Answer Date Recorded How often do you have a drink containing alcohol ? 1 07/08/2025 How many drinks containing a lcohol do you have on a typical day when you are drinking? 0 07/08/2025 How often do you have six or more drinks on one occasion? 0 07/08/2025 Housing Stability Answer Date Recorded What is your housing situation today? I have peter bueno 07/08/[address] you li [...] Internet Access Q2 Not on file 07/08/2025 Sex and Gender Information Value Date [...]
--- OUTSIDE RECORDS SUMMARY | 2025-07-08 17:47 | XMS_ITS | Clinical Summary ---
Author Organization [employer] Address [address] [facility] 7[address] [place] [address] Care Team Providers Care Clinical Care Manager Name Role Phone Konstantin Tolbert MD Primary Care Provider Allergies Active Allergy Reactions Criticality Noted Date Comments Penicillins Rash Low 07/08/2025 Had a rash when taking penicillin in his teens Medications carbamide peroxide (Debrox) 6.5 % otic solutionIndicati ons:Health care maintenance Administer 3-5 drops into the left ear in the morning and 3-5 drops before bedtime. Do all this for 4 days. 15 mL 07/08/20 25 025 Active lisinopril-hydro CHLOROthiazide 10-12.5 MG tabletIndication s:Primary hypertension Take 1 tablet by mouth Once per day. 30 tablet 11 07/08/20 25 026 Active Blood Pressure kit Check blood pressure daily 1 kit 07/08/20 Active Blood Pressure kitIndications:P rimary hypertension To check the BP daily 1 kit 07/08/20 25 025 Discontinued Blood Pressure kit Check blood pressure daily 1 kit 07/08/20 25 025 Discontinued Hospital, Clinic, or Other Facility Administered Medication Ordered Dose Route Frequency Start Date End Date Status cloNIDine (Catapres) tablet 0.2 mgIndications:Primary hypertension 0.2 mg PO Once 07/08/2025 07/08/2025 Ended Active Problems Problem Noted Date Diagnosed Date Primary hypertension 07/08/2025 Assessment & Plan (07/08/2025 3:57 PM EDT): Orders: lisinopril-hydroCHLOROthiazide 10-12.5 MG tablet; Take 1 tablet by mouth Once per day. cloNIDine (Catapres) tablet 0.2 mg Encounters Date Type Department Care Team Description 07/08/2025 2:00 PM EDT Office Visit [facility] [address] [place] [address] Konstantin Tolbert MD Primary hypertension (Primary Dx); Health care maintenance; Dietary counseling; Exercise counseling; Excessive cerumen in left ear canal; Hypertensive emergency 07/08/2025 Travel 07/07/2025 Travel 07/05/2025 Telephone [facility] [address] [place] [address] Alma Hernandes MA chart prep 06/28/2025 Patient Outreach [facility] [address] [place] [phone] Papo Pelaez MD Pre-visit Planning (Pre visit planning unable to LVM ) 04/30/2025 Telephone [facility] [address] [place] [phone] Papo Pelaez MD 04/15/2025 Telephone [facility] [address] [place] [phone] Papo Pelaez MD new patient visit from Last 3 Months Social History Tobacco Use Types Packs/Day Years [...] Orientation Straight 07/26/2022 10 :16 AM EDT Last Filed Vital Signs Vital Sign Reading [...] Mass Index 27.47 07/08/2025 2:07 PM EDT Plan of Treatment Health Maintenance Due Date Last Done Comments CT Colonography 1963 Colonoscopy 1963 Colorectal Cancer Screening 1963 Depression Screening 1963 FIT DNA/Cologuard 1963 FIT 1963 FOBT 1963 HIV Screening 1963 Lipid Panel 1963 Sigmoidoscopy 1963 Hepatitis C Screening 1981 DTaP/Tdap/Td Vaccines (1 - Tdap) 1982 Pneumococcal Vaccine: 50+ Years (1 of 1 - PCV) 2013 Zoster Vaccines (1 of 2) 2013 COVID-19 Vaccine (3 - 2024-2 6 season) 2025 02/21/2021, 01/24/2021 Influenza Vaccine (#1) 2025 Disability Screening 07/07/2026 07/07/2025 Alcohol/Substance Use Screening 07/08/2026 07/08/2025 SDOH Screening 07/08/2026 07/08/2025 Tobacco Screening 07/08/2026 07/08/2025 RSV Patients and Patients Aged 60 years or older (1 - 1-dose 75+ series) 2038 HIB Vaccines Aged Out No longer eligi ble based on patient's age to complete this topic HPV Vaccines Aged Out No longer eligi ble based on patient's age to complete this topic Hepatitis A Vaccines Aged Out No long er eligible based on patient's age to complete this topic Hepatitis B Vaccines Aged Out No long er eligible based on patient's age to complete this topic IPV Vaccines Aged Out No longer eligi ble based on patient's age to complete this topic Meningococcal B Vaccine Aged Out No l onger eligible based on patient's age to complete this topic Meningococcal Vaccine Aged Out No nolvia julito eligible based on patient's age to complete this topic RSV under 20 months Aged Out No longe r eligible based on patient's age to complete this topic Rotavirus Vaccines Aged Out No longer eligible based on patient's age to complete this topic [facility] [id number] Care Teams Clinical Care Manager Relationship Specialty Start Date End Date Konstantin Tolbert MD [address] [place] [phone] PCP - General Internal Medicine 07/08/25
--- OUTSIDE RECORDS SUMMARY | 2025-07-08 17:47 | XMS_ITS | Encounter Summary ---
Author Organization [employer] Address [address] [facility] [address] [place] [address] Care Team Providers Care Micro Photographer Name Role Phone Konstantin Tolbert MD Primary Care Provider [phone] Encounter Details Date Type Department Care Team (Latest Contact Info) Description 07/08/2025 Travel Social History Tobacco Use Types Packs/Day Years Used Date Smoking Tobacco: Never Smokeless Tobacco: Never Alcohol Use Standard Drinks/Week Comments Yes 47 [...] AM EDT documented as of this encounter Functional Status * Trouble falling [...] 4:38 PM EDT Chu Hernandes MA * Moving or speaking so [...] Hernandes MA documented as of this encounter Plan of Treatment Not on file documented as of this encounter Visit Diagnoses Not on filedocumented in this encounter Care Teams Micro Photographer Relationship Specialty Start Date End Date Konstantin Tolbert MD [address] [place] [address] SINA Vickers [id number] PCP - General Internal Medicine 07/08/25 documented as of this encounter
--- OUTSIDE RECORDS SUMMARY | 2025-07-08 17:48 | XMS_ITS | Patient Health Record ---
Author Organization [employer] Address [address] [place] [address] Care Team Providers Care Blacksmith Helper Name Role Phone Jamison (RETIRED) Henrry CALERO Primary Care Provide Charanjit Dickey Jr Unavailable [phone] Allergies Allergen (clinical drug ingredient) Drug/Non Drug Allergy documented on EMR Reaction Allergy Type Onset Date Status PCN (uncoded) Unknown Allergy Active Reason For Referral No Information Medications Medication SIG (Take, Route, Fr equency, Duration) Notes Start Date End Date Status MoviPrep 100 GM as directed before c olonoscopy Orally; Duration: 1 dose 11/17/2011 09/26/2024 Active Simvastatin Active Lisinopril Active Omeprazole 09/26/2024 09/26/2024 Active traMADol HCl Active Social History Tobacco Use: Social History Observation Description Date Details (start date - stop date) Never Smoker NA - NA Tobacco Use/Smoking Question Answer Notes Patient is a nonsmoker Alcohol Screen Question Answer Notes Did you have a drink contain ing alcohol in the past year? Yes Points 10 Interpretation Positive How often did you have a dri nk containing alcohol in the past year? 4 or more times a week (4 points) How many drinks did you have on a typical day when you were drinking in the past year? 10 or more drinks (4 points) How often did you have 6 or more drinks on one occasion in the past year? Monthly (2 points) Problems Problem Type SNOMED Code ICD Code Onset Dates Problem Status W/U Status Risk Notes Problem Esophageal reflux (830003163) Esophageal reflux (530.81) Active confirmed Problem Blood in stool (848587450) Blood in stool (578.1) Active confirmed Problem Digestive system symptom (776035110) Other symptoms involving digestive system (787.99) Active confirmed Problem Feces contents abnormal (827296744) Nonspecific abnormal finding in stool contents (792.1) Active confirmed Problem Abnormal findings diagnostic imaging of liver and biliary tract (529271274) Nonspecific abnormal findings on radiological and other examination of biliary tract (793.3) Active confirmed Plan Of Treatment Future Test Test Name Order Date UPPER GI ENDOSCOPY 11/17/2011 COLONOSCOPY 11/17/2011 Insurance Providers Payer Name Payer Address Payer Phone Subscriber Number Group Number Insured Name Patient Relationship to Insured Coverage Start Date Coverage End Date [facility] [address] [place] [address] [id number] AICHA CHARLES Self - patient is the insured Medical (General) History Medical History History ICD Code hypertension elevated cholesterol gastroesophageal reflux disease Surgical History Surgery Date(Month/Year) appendectomy tonsillectomy
--- NOTE | 2025-07-08 18:04 | ECG_ITS ---
Test Reason : ABNORMAL LABS Blood Pressure : */* mmHG Vent. Rate : 81 BPM Atrial Rate : 81 BPM P-R Int : 102 ms QRS Dur : 82 ms QT Int : 418 ms P-R-T Axes : 40 11 -9 degrees QTcB Int : 485 ms Sinus rhythm with short CO Nonspecific ST and T wave abnormality Abnormal ECG When compared with ECG of 10-Apr-2023 14:09, Nonspecific T wave abnormality, improved in Lateral leads Referred By: Micah Ho Electronically Signed By: Lenny Marroquin
--- NOTE | 2025-07-08 18:32 | ED.GENADULT ---
HPI - General Adult General Chief complaint: General Medical Stated complaint: HTN 202/112s hasn't taken BP meds x 1 year Time Seen by Provider: 07/08/25 18:04 Source: patient, RN notes reviewed and old records reviewed Mode of arrival: EMS Limitations: no limitations History of Present Illness ED Provider: Georgia SANCHEZ narrative: 60-year-old male past medical history significant for hypertension presents for evaluation of high blood pressure. Patient had a routine follow up with a new PCP. His primary doctor retired about a year ago. The patient's blood pressure was noted to be use high as 219/110 in the office today which is why he was sent to the ER. The patient is given a dose of clonidine 0.2 mg at the PCP office prior to coming in. The patient reports that he had previously been on lisinopril 10 mg daily but he is not taking this at about 1 year due to his primary doctor retired The patient denies any complaints or concerns including headache, chest pain Related Data Home Medications ?Medication ?Instructions ?Recorded ?Confirmed lisinopril 10 mg tablet 10 mg PO DAILY blood pressure 08/12/20 09/24/20 simvastatin 10 mg tablet 10 mg PO DAILY 08/12/20 09/24/20 Previous Rx's ?Medication ?Instructions ?Recorded benzonatate 200 mg capsule 200 mg PO TID PRN cough #20 caps 04/10/23 oxycodone 5 mg tablet 5 mg PO Q6H PRN severe pain (scale 04/10/23 score 7-10) #12 tabs indomethacin 25 mg capsule 25 mg PO TID #20 caps 06/29/24 Allergies Allergy/AdvReac Type Severity Reaction Status Date / Time Penicillins (PENICILLINS) Allergy Unknown UNKNOWN Verified 07/08/25 17:27 Review of Systems Constitutional: Constitutional: Denies body ache(s), Denies chills, Denies fever(s) and Denies headache(s) Eyes: Eyes: Denies blurry vision ENT: Denies vertigo, Denies dizziness and Denies headache(s) Cardiovascular: Cardiovascular: Denies chest pain and Denies dyspnea on exertion Respiratory: Respiratory: Denies dyspnea on exertion Gastrointestinal: Gastrointestinal: Denies abdominal pain, Denies nausea and Denies vomiting Musculoskeletal: Musculoskeletal: Denies back pain Integumentary/Breasts: Skin/Breast: Denies rash Neurologic: Denies vertigo, Denies dizziness and Denies headache(s) [facility] Past Medical History Medical History Hypercholesterolemia Hypertension Surgical History H/O umbilical hernia repair History of appendectomy Social History Social History Alcohol intake: current Alcohol intake frequency: 3 or more drinks per day Alcohol type: beer and hard liquor Smoked in Last 30 Days: No Second Hand Smoke Exposure: No Use of substances other than those prescribed or required for medical reasons: No Advance Directives: No Advance Directives Information Provided: No Do you have a plan to hurt others: No Plan Physical Exam ED Vital Signs: Vital Signs - 24 hr 07/08/25 17:23 07/08/25 17:23 07/08/25 19:51 Temperature 98.3 F 98.3 F 98 F Pulse Rate 83 85 76 Respiratory Rate 16 18 Blood Pressure 196/100 H 196/100 H 176/90 H Pulse Oximetry 96 96 98 Oxygen Delivery Method Room Air Room Air Room Air BMI result Body Mass Index 29.0 Const General: healthy appearing, comfortable, no acute distress, alert and awake Nutritional Appearance: well nourished Orientation/consciousness: patient oriented x3 HENMT Head: Yes normocephalic and Yes atraumatic Eyes Eyelids: Yes eyelids normal Conjunctivae: conjunctivae normal Sclerae: sclerae normal Corneas: corneas normal Pupils: Equal, round and reactive pupils present EOM: EOMs intact bilaterally Neck Neck: Yes full ROM Resp Effort & Inspection: normal respiratory effort, able to speak in complete sentences and not labored Cardio Rate: regular rate Rhythm: regular rhythm GI Inspection: No distended Palpation (GI): Soft to palpation, not firm, nontender, no guarding and not rigid Skin General skin exam: elasticity normal Neuro General: patient oriented x3 Cranial nerves: Yes CN's II-XII intact bilaterally, Yes Equal, round and reactive pupils present and Yes Bilaterally intact EOM present Cognition (Neuro): normal cognition Extrem Other: Moving all extremities well without any obvious deformities Course Reevaluation(s) Reevaluation #1: I discussed with the patient's workup with him. He likely has some degree of liver disease from alcohol abuse. This explains his anemia, thrombocytopenia and total bilirubin AST being elevated. I did recommend a digital rectal examination for guaiac testing to evaluate for a GI bleed. The patient reports that he has seen some bright red blood in his stool recently in his primary doctor is already working on scheduling him for a colonoscopy. He denies any black stool and he declines the rectal examination. I encouraged him to follow up with his doctor and he would also benefit from an outpatient liver ultrasound and alcohol cessation. Similar like to be discharged home. Time: 19:54 Medical Decision Making Medical Decision Making [facility] Narrative: 60-year-old male presents for evaluation of asymptomatic hypertension. He was given some clonidine by his PCP prior to coming in. He also had his prescription refilled and he was restarted on hydrochlorothiazide/HCTZ 10-12.5. He has this prescription with him. Plan for basic labs, EKG, given that he is asymptomatic he will likely be discharged home as long as his blood pressure improves. Differential Diagnosis Differential Diagnoses: The differential diagnosis associated with the presentation includes High blood pressure Hypertension Medication noncompliance Hypertensive urgency Admission/Observation Consideration of admission/observation: Escalation of care including admission/observation considered Lab Data [facility] Lab Attestation statement: I reviewed the patient's lab results. The patient has no leukocytosis, he does have a mild left shift of unclear etiology. The patient does have a new onset microcytic anemia. I suspect this is due to liver disease related to alcohol consumption. The patient reports that he drinks 4 beers and 3 nips every single day. 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 The patient's total bilirubin is elevated at 3.0 with an AST of 55, he has no abdominal pain, tenderness on exam to suggest obstructive biliary disease. 07/08/25 19:00 07/08/25 19:00 Labs: Lab Results 07/08/25 Range/Units 19:00 WBC 7.3 (4.8-10.8) X10*3/uL RBC 3.19 L D (4.60-5.80) X10*6/uL Hgb 12.2 L (14.0-18.0) g/dl Hct 32.7 L D (42.0-52.0) % MCV 102.5 H (80.0-98.0) fL MCH 38.2 H (27.0-33.0) pg MCHC 37.3 H (31.0-36.0) g/dl RDW 13.8 (11.0-16.0) % Plt Count 133 L D (160-400) X10*3/uL MPV 10.2 (9.4-12.4) fL Immature Gran % (Auto) 0.3 (0.0-0.4) % Neut % (Auto) 81.8 H (45-73) % Lymph % (Auto) 11.4 L (20-40) % [place] % (Auto) 5.8 (2-11) % Eos % (Auto) 0.3 (0-4) % Baso % (Auto) 0.4 (0-2) % Lymph # (Auto) 0.8 L (1.2-4.9) X10*3/uL [place] # (Auto) 0.4 (0.1-1.2) X10*3/uL Eos # (Auto) 0.0 (0.0-0.4) X10*3/uL Baso # (Auto) 0.0 (0.0-0.2) X10*3/uL Abs Immat Gran (auto) 0.02 (0.00-0.03) X10*3/uL Absolute Neuts (auto) 6.0 (2.0-8.3) x10*3/uL Absolute Nucleated RBC 0.000 (0.0-0.012) X10*3/uL Nucleated RBC % (auto) 0.0 (0.0-0.2) /100WBC Sodium 140 (135-145) mmol/L Potassium 4.1 (3.3-5.1) mmol/L Chloride 101 (96-108) mmol/L Carbon Dioxide 27 (22-29) mmol/L Anion Gap 16 (12-20) BUN 9 (9-16) mg/dL Creatinine 0.65 (0.5-1.4) mg/dL Estim Creat Clear Calc 106.4 Estimated GFR > 60 Random Glucose 109 (60-115) mg/dL Calcium 8.2 L D (8.4-10.2) mg/dL Total Bilirubin 3.0 H (0.0-1.0) mg/dL AST 55 H (5-37) U/L ALT 20 (0-40) U/L Alkaline Phosphatase 62 (39-117) U/L Total Protein 5.9 L (6.5-8.0) g/dL Albumin 3.8 (3.5-5.0) g/dL Lipase 33 (8-78) U/L Discharge Plan Discharge Clinical Impression: Hypertension Patient Disposition: Home, Self-Care Instructions: Chronic Hypertension (ED) Additional Instructions: Your workup in the ER today was significant for an elevated blood pressure that improved with the medication you were given my your primary doctor. You should take your lisinopril with hydrochlorothiazide daily as prescribed Your hemoglobin and hematocrit were slightly low, your platelet count was slightly low and some your liver enzymes were slightly elevated. I suspect this is due to excessive alcohol consumption and I recommend decreasing or completely stopping alcohol use. You may benefit from an outpatient right upper quadrant ultrasound to assess the liver. I also recommend you see GI for an endoscopy and colonoscopy due to the mild anemia Prescriptions: No Action oxycodone 5 mg tablet 5 mg PO Q6H PRN (Reason: severe pain (scale score 7-10)) Qty: 12 0RF Rx Instructions: Partial Fill upon patient request. benzonatate 200 mg capsule 200 mg PO TID PRN (Reason: cough) Qty: 20 0RF indomethacin 25 mg capsule 25 mg PO TID Qty: 20 0RF Rx Instructions: administer with food or milk lisinopril 10 mg tablet 10 mg PO DAILY simvastatin 10 mg tablet 10 mg PO DAILY Referrals: [facility] [Provider Group, Gastroenterology] Referral Note: anemia, likely liver cirrhosis Print Language: Gabonese
[2025-07-08 19:05] LABS: MANUAL DIFF FLAG NO
[2025-07-08 19:21] LABS: Alanine Aminotransferase 20 U/L (0-40); Albumin Level 3.8 g/dL (3.5-5.0); Alkaline Phosphatase 62 U/L (39-117); Anion Gap 16 (12-20); Aspartate Amino Transferase 55 U/L (5-37); Blood Urea Nitrogen 9 mg/dL (9-16); Calcium 8.2 mg/dL (8.4-10.2); Carbon Dioxide 27 mmol/L (22-29); Chloride 101 mmol/L (96-108); Creatinine Clr Calc Pharmacy 106.4; Estimated Glomerular Filt Rate > 60; Lipase 33 U/L (8-78); Potassium 4.1 mmol/L (3.3-5.1); Sodium 140 mmol/L (135-145); Total Protein 5.9 g/dL (6.5-8.0)
[2025-07-08 19:33] LABS: Hematocrit 32.7 % (42.0-52.0); Hemoglobin 12.2 g/dl (14.0-18.0); Imm Gran Abs Auto 0.02 X10*3/uL (0.00-0.03); Imm Gran Pct Auto 0.3 % (0.0-0.4); Lymphocytes Absolute Auto 0.8 X10*3/uL (1.2-4.9); Mean Corpuscular HGB Conc 37.3 g/dl (31.0-36.0); Mean Corpuscular Hemoglobin 38.2 pg (27.0-33.0); Mean Corpuscular Volume 102.5 fL (80.0-98.0); NRBC Abs Auto 0.000 X10*3/uL (0.0-0.012); NRBC Pct Auto 0.0 /100WBC (0.0-0.2); Platelet Count 133 X10*3/uL (160-400); Red Blood Count 3.19 X10*6/uL (4.60-5.80); White Blood Count 7.3 X10*3/uL (4.8-10.8)
[2025-07-08 19:51] VITALS: BP 176/90; PULSE 76; RESP 18; TEMP 36.6; O2SAT 98
[2025-07-08 20:13] VITALS: BP 176/90; PULSE 76; RESP 18; TEMP 36.6; O2SAT 98
== END 2025-07-08 20:14 | disposition home or self-care (01) ==
PROVIDERS: Physician Assistant; Emergency Provider Emergency Medicine Emergency Medical Services
DX: I10 Essential (primary) hypertension (principal); T46.4X6A Underdosing of angiotensin-converting-enzyme inhibitors, initial encounter; Y92.9 Unspecified place or not applicable; D64.9 Anemia, unspecified; D69.6 Thrombocytopenia, unspecified; R74.01 Elevation of levels of liver transaminase levels; F10.10 Alcohol abuse, uncomplicated; Z88.0 Allergy status to penicillin
CPT/HCPCS: 36415; 80053; 83690; 85025; 93005; 99283; 99284

== ENCOUNTER → 2025-07-08 18:04 | Outpatient (BNV) | payer OTHER, SELFPAY | PROVIDERS: Emergency Provider Emergency Medicine Emergency Medical Services; Visit Provider Internal Medicine Cardiovascular Disease | DX: R94.31 Abnormal electrocardiogram [ECG] [EKG] (principal); R79.9 Abnormal finding of blood chemistry, unspecified; I10 Essential (primary) hypertension | CPT/HCPCS: 93010 ==

== ENCOUNTER 2025-07-22 10:03 | Outpatient (REF) | payer OTHER, SELFPAY ==
--- OUTSIDE RECORDS SUMMARY | 2025-07-22 11:54 | XMS_ITS | Encounter Summary ---
Author Organization [employer] Address [address] [place] [address] Care Team Providers Care Marketing Developer Name Role Phone Konstantin Tolbert MD Primary Care Provider [phone] Reason for Referral * Consultation (Routine) - Authorized Specialty Diagnoses / Procedures Referred By Contjamie t Referred To Contact Gastroenterology Diagnoses Screening for colon cancer Konstantin Tolbert MD [address] [place] [address] Phone: tel: fax: Nalini Wayne MD [address] [place] [id number] Phone: tel: fax: Referral ID Status Reason Start Date Expiration Date Visits Requested Visits Authorized [id number] Authorized Specialty Services Required 07/09/2026 1 1 Encounter Details Date Type Department Care Team ([facility] st Contact Info) Description 07/09/2025 Orders Only [facility] [address] [place], [place] [phone] Konstantin Tolbert MD [address] [place], [place] [phone] Screening for colon cancer (Primary Dx) Social History Tobacco Use Types Packs/Day Years [...] as of this encounter Plan of Treatment Scheduled Referrals Name Type Priority Associated Diagnoses Order Schedule Referral to Gastroenterology Outpatient Referral Routine Screening for colon cancer Expected: 07/09/2025 (Approximate), Expires: 07/09/2026 documented as of this encounter Visit Diagnoses Diagnosis Screening for colon cancer- Primary Special screening for malignant neoplasms, colon documented in this encounter Care Teams Marketing Developer Relationship Specialty Start Date End Date Konstantin Tolbert MD [address] [place] [address] PCP - General Internal Medicine 07/08/25 documented as of this encounter
--- OUTSIDE RECORDS SUMMARY | 2025-07-22 11:54 | XMS_ITS | Clinical Summary ---
Author Organization [facility] [employer] Address [address] [facility] [address] [place] [address] Care Team Providers Care Supervisor Coal Handling Name Role Phone Konstantin Tolbert MD Primary Care Provider [phone] Allergies Active Allergy Reactions Criticality Noted Date Comments Penicillins Rash Low 07/08/2025 Had a rash when taking penicillin in his teens Medications lisinopril-hydro CHLOROthiazide 10-12.5 MG tabletIndication s:Primary hypertension Take 1 tablet by mouth Once per day. 30 tablet 11 07/08/20 25 026 Active Blood Pressure kit Check blood pressure daily 1 kit 07/08/20 25 Active carbamide peroxide (Debrox) 6.5 % otic solutionIndicati ons:Health care maintenance Administer 3-5 drops into the left ear in the morning and 3-5 drops before bedtime. Do all this for 4 days. 15 mL 07/08/20 25 025 Blood Pressure kitIndications:P rimary hypertension To check [...] Active Problems Problem Noted Date Diagnosed Date Macrocytic anemia 07/15/2025 Primary hypertension 07/08/2025 Assessment & Plan (07/08/2025 8:26 PM EDT): Orders: lisinopril-hydroCHLOROthiazide 10-12.5 MG tablet; Take 1 tablet by mouth Once per day. cloNIDine (Catapres) tablet 0.2 mg Mixed hyperlipidemia 07/08/2025 Encounters Date Type Department Care Team Description 07/15/2025 3:45 PM EDT Office Visit [facility] [address] [place] [address] Konstantin Tolbert MD Primary hypertension (Primary Dx); Macrocytic anemia; Mixed hyperlipidemia; Alcohol use disorder 07/15/2025 Travel 07/13/2025 Travel 07/10/2025 Telephone [facility] [address] [place] [phone] Konstantin Tolbert MD ER Follow-up 07/09/2025 Orders Only [facility] [address] [place] [address] Konstantin Tolbert MD Screening for colon cancer (Primary Dx) 07/09/2025 Telephone [facility] [address] [place] [address] Konstantin Tolbert MD 07/08/2025 2:00 PM EDT Office Visit [facility] [address] [place] [address] Konstantin Tolbert MD Primary hypertension (Primary Dx); Health care maintenance; Dietary counseling; Exercise counseling; Excessive cerumen in left ear canal; Hypertensive emergency; Mixed hyperlipidemia 07/08/2025 Travel 07/07/2025 Travel 07/05/2025 Telephone [facility] [address] [place], [place] [phone] Alma Hernandes MA chart prep 06/28/2025 Patient Outreach [facility] [address] [place] [address] [phone] Papo Pelaez MD Pre-visit Planning (Pre visit planning unable to LVM ) 04/30/2025 Telephone [facility] [address] [place] [address] [phone] Papo Pelaez MD from Last 3 Months Family History Medical History Relation Name Comments COPD Mother Diabetes type II Mother Heart problem Mother Relation Name Status Comments Mother Social History Tobacco Use Types Packs/Day Years [...] Sign Reading Time Taken Comments Blood Pressure 138/76 07/15/2025 4:03 PM EDT Pulse 68 07/15/2025 4:03 PM EDT Temperature - - Respiratory Rate 20 07/15/2025 4:03 PM EDT Oxygen Saturation 93% 07/15/2025 4:03 PM EDT Inhaled Oxygen Concentration - - Weight 68.9 kg (152 lb) 07/15/2025 4:03 PM EDT Height 161 cm (5' 3.39 ) 07/15/2025 4:03 PM EDT Body Mass Index 26.6 07/15/2025 4:03 PM EDT Plan of Treatment Health Maintenance Due Date Last Done Comments CT Colonography 1963 Colonoscopy 1963 Colorectal Cancer Screening 1963 Depression Screening 1963 FIT DNA/Cologuard 1963 FIT 1963 FOBT 1963 HIV Screening 1963 Lipid Panel 1963 Sigmoidoscopy 1963 Hepatitis C Screening 1981 Influenza Vaccine (#1) 2026 Postp oned from 05/27/2025 (Patient Refused) Disability Screening 07/07/2026 07/07/2025 Alcohol/Substance Use Screening 07/08/2026 07/08/2025 SDOH Screening 07/08/2026 07/08/2025 COVID-19 Vaccine (3 - 2024-2 6 season) 2026 02/21/2021, 01/24/2021 Postponed from 05/27/2025 (Patient Refused) DTaP/Tdap/Td Vaccines (1 - Tdap) 07/15/2026 Postponed from 04/14 (Patient Refused) Pneumococcal Vaccine: 50+ Years (1 of 1 - PCV) 07/15/2026 Postponed from 03/27 (Patient Refused) Tobacco Screening 07/15/2026 07/15/2025 Zoster Vaccines (1 of 2) 07/15/2026 Pos tponed from 2013 (Patient Refused) RSV Patients and Patients Aged 60 years [...] patient's age to complete this topic Insurance [employer] PPO Care Teams Supervisor Coal Handling Relationship Specialty Start Date End Date Konstantin Tolbert MD [address] [place] [address] PCP - General Internal Medicine 07/08/25
--- OUTSIDE RECORDS SUMMARY | 2025-07-22 11:54 | XMS_ITS | Patient Health Record ---
Author Organization [facility] Address [address] [place] [address] Care Team Providers Care Head Of Training And Development Name Role Phone Jamison (RETIRED) Henrry CALERO Primary Care Provide Charanjit Dickey Jr Unavailable Allergies Allergen (clinical drug ingredient) Drug/Non Drug [...] W/U Status Risk Notes Problem Esophageal reflux (931619879) Esophageal reflux (530.81) Active confirmed Problem Blood in stool (177043687) Blood in stool (578.1) Active confirmed Problem Digestive system symptom (954073469) Other symptoms involving digestive system (787.99) Active confirmed Problem Feces contents abnormal (468930108) Nonspecific abnormal finding in stool contents (792.1) Active confirmed Problem Abnormal findings diagnostic imaging of liver and biliary tract (927437949) Nonspecific abnormal findings on radiological and other examination of biliary tract (793.3) Active confirmed Plan Of Treatment Future Test Test Name Order Date UPPER GI ENDOSCOPY 11/17/2011 COLONOSCOPY 11/17/2011 Insurance Providers Payer Name Payer Address Payer Phone Subscriber Number Group Number Insured Name Patient Relationship to Insured Coverage Start Date Coverage End Date [facility] [address] [place] [address] [id number] AICHA CHARLES Self - patient is the insured Medical (General) History Medical History History ICD Code hypertension elevated cholesterol gastroesophageal reflux disease Surgical History Surgery Date(Month/Year) appendectomy tonsillectomy
[2025-07-22 14:05] LABS: MANUAL DIFF FLAG NO
[2025-07-22 14:21] LABS: Hematocrit 34.5 % (42.0-52.0); Hemoglobin 12.1 g/dl (14.0-18.0); Imm Gran Abs Auto 0.01 X10*3/uL (0.00-0.03); Imm Gran Pct Auto 0.2 % (0.0-0.4); Lymphocytes Absolute Auto 1.4 X10*3/uL (1.2-4.9); Mean Corpuscular HGB Conc 35.1 g/dl (31.0-36.0); Mean Corpuscular Hemoglobin 36.4 pg (27.0-33.0); Mean Corpuscular Volume 103.9 fL (80.0-98.0); NRBC Abs Auto 0.000 X10*3/uL (0.0-0.012); NRBC Pct Auto 0.0 /100WBC (0.0-0.2); Platelet Count 375 X10*3/uL (160-400); Red Blood Count 3.32 X10*6/uL (4.60-5.80); White Blood Count 5.9 X10*3/uL (4.8-10.8)
[2025-07-22 14:47] LABS: Alanine Aminotransferase 32 U/L (0-40); Albumin Level 4.0 g/dL (3.5-5.0); Alkaline Phosphatase 43 U/L (39-117); Anion Gap 13 (12-20); Aspartate Amino Transferase 28 U/L (5-37); Blood Urea Nitrogen 6 mg/dL (9-16); Calcium 9.3 mg/dL (8.4-10.2); Carbon Dioxide 31 mmol/L (22-29); Chloride 100 mmol/L (96-108); Cholesterol 197 mg/dL (<200); Estimated Glomerular Filt Rate > 60; HDL Cholesterol 49 mg/dL (>40); Iron 71 mcg/dL (45-160); Magnesium 1.9 mg/dL (1.6-2.6); Percent Iron Saturation 31 % (15-50); Potassium 4.0 mmol/L (3.3-5.1); Sodium 140 mmol/L (135-145); Total Iron Binding Capacity 231 mcg/dL (228-428); Total Protein 6.4 g/dL (6.5-8.0); Triglycerides 63 mg/dL (<150); Unsaturated Iron Binding 160 ug/dL
[2025-07-22 14:50] LABS: Ferritin 657 ng/mL (20-250)
[2025-07-22 15:07] LABS: PSA,Total (Free>4and<10) 2.06 ng/mL (0.00-4.00)
[2025-07-22 15:10] LABS: HIV Num 1 0.05 S/CO (0.00-0.99); ~HepC Num1 0.18 S/CO (0.00-0.79); ~Hepatitis C Antibody Nonreactive (Nonreactive)
[2025-07-22 15:38] LABS: Folate 2.8 ng/mL (> or = 4.0); Vitamin B12 314 pg/mL (200-900)
== END 2025-07-22 10:04 | disposition home or self-care (01) ==
LOC: HO.CHCLDS 10:03
PROVIDERS: Visit Provider Internal Medicine
DX: Z00.00 Encounter for general adult medical examination without abnormal findings (principal); I10 Essential (primary) hypertension; D53.9 Nutritional anemia, unspecified; Z12.5 Encounter for screening for malignant neoplasm of prostate
CPT/HCPCS: 36415; 80053; 80061; 82607; 82728; 82746; 83540; 83735; 84153; 85025; 86803; 87389